=== PATIENT | female | born 1990 | race African-American/Black ===

== ENCOUNTER 2017-05-30 21:23 | Emergency (ER) | payer BC ==
[~2017-05-30] VITALS: Ht 157.5 cm; Wt 61.2 kg
== END 2017-05-30 22:09 | disposition home or self-care (01) ==
LOC: FSED 21:23
DX: R05 Cough (principal); J30.2 Other seasonal allergic rhinitis
CPT/HCPCS: 99282

== ENCOUNTER 2017-06-03 23:47 | Emergency (ER) | payer BC ==
[~2017-06-03] VITALS: Ht 165.1 cm; Wt 83.9 kg
--- OUTSIDE RECORDS SUMMARY | 2017-06-03 23:50 | XMS REPORT | Continuity of Care Document ---
Author Author [facility] Organization [facility] Address [address] [place] [place] [address] Phone Unavailable Care Team Providers Care Reservation Clerk Name Role Phone NO, PCP PCP Unavailable Advance Directives No advance directive information available. Problems No problem information available. Medications No medication information available. Social History No social history information available. Hospital Discharge Instructions No hospital discharge instruction information available. Plan of Care Discharge Date 05/30/17 10:09pm Disposition HOME, SELF-CARE Condition at Discharge Stable Instructions/Education Provided Hay Fever Prescriptions See Medication Section Additional Instructions/Education Return to the closest emergency room if symptoms worsen. Take medication as prescribed. Afrin nasal spray as needed for nasal congestion. Use neti pot and dehumidifier as needed for nasal congestion. Follow up with your primary care physician on Thursday Functional Status No functional status information available. Allergies, Adverse Reactions, Alerts No known allergies. Immunizations No immunization information available. Vital Signs Acute Vital Signs Vital Response Date/Time Height 5 ft 2 in 05/30/2017 9:30pm Weight 135 lb 05/30/2017 9:30pm Body Mass Index 24.7 kg/m^2 05/30/2017 9:30pm Results No relevant diagnostic test, laboratory data and/or discharge summary information available. Procedures No procedure information available. Encounters Encounter Location Arrival/Admit Date Discharge/Depart Date Attending Provider Registered Emergency Room [facility] 05/30/17 9:23pm MIKE BERMUDEZ MD
[2017-06-04] MEDS ORDERED: ALBUTEROL/IPRATROPIUM 3 ML NEB NEB ONE (02:45)
[2017-06-04 04:13] VITALS: BP 128/81
== END 2017-06-04 04:07 | disposition home or self-care (01) ==
LOC: FSED 23:47
DX: R05 Cough (principal); J98.01 Acute bronchospasm; J00 Acute nasopharyngitis [common cold]
CPT/HCPCS: 71046; 81025; 83518; 87400; 99283

== ENCOUNTER 2017-11-03 21:18 | Emergency (ER) | payer BC ==
[~2017-11-03] VITALS: Ht 165.1 cm; Wt 83.9 kg
== END 2017-11-03 22:38 | disposition home or self-care (01) ==
LOC: FSED 21:18
DX: R30.0 Dysuria (principal); N30.90 Cystitis, unspecified without hematuria
CPT/HCPCS: 81003; 81025; 99283